=== PATIENT | female | born 1985 | race Caucasian/White ===

== ENCOUNTER 2022-10-03 11:25 | Emergency (ER) | payer BC ==
[~2022-10-03] VITALS: Ht 170.2 cm; Wt 79.5 kg
[2022-10-03 11:31] VITALS: TEMP 98.2
[2022-10-03] MEDS ORDERED: VALIUM 2MG T2 MG/TAB PO (15:10)
[2022-10-03 15:29] VITALS: BP 112/84; PULSE 76
== END 2022-10-03 15:32 | disposition home or self-care (01) ==
LOC: COL.ER 11:25
DX: M47.22 Other spondylosis with radiculopathy, cervical region (principal)
CPT/HCPCS: J1885; Q9967